=== PATIENT | male | born 1975 | race African-American/Black ===

== ENCOUNTER 2017-01-19 16:27 | Inpatient (IN) | payer MEDICAID ==
[~2017-01-19] VITALS: Ht 165.1 cm; Wt 106.1 kg
[2017-01-19 19:22] LABS: Calcium 8.3 mg/dL (8.5-10.1); Potassium 3.4 mmol/L (3.5-5.1)
[2017-01-19 19:24] LABS: Basophils # (auto) 0 uL; Basophils % (auto) 0.2 % (0.0-2.0); Eosinophils # (auto) 0.2 uL; Eosinophils % (auto) 1.9 % (0.0-7.0); Hematocrit 38.9 % (41.0-53.0); Hemoglobin 13.4 g/dL (13.5-17.5); Lymphocytes % (auto) 12.1 % (10.0-50.0); Mean Corpuscular Hemoglobin 28.8 pg (28.0-32.0); Mean Corpuscular Hgb Conc. 34.5 g/dL (32.0-36.0); Mean Corpuscular Volume 83.4 fL (80.0-100.0); Mean Platelet Volume 8.7 fL (7.4-10.4); Monocytes # (auto) 0.7 uL; Monocytes % (auto) 8.1 % (0.0-12.0); Neutrophils # (auto) 6.5 uL; Neutrophils % (auto) 77.7 % (37.0-80.0); Platelet Count (auto) 313 10^3/uL (140-450); Red Cell Distribution Width 13.6 % (11.6-16.0); White Blood Cell 8.4 10^3/uL (4.4-10.8)
[2017-01-19 19:25] LABS: BUN/Creatinine Ratio 6.9
[2017-01-19 19:28] LABS: Bilirubin, Total 0.2 mg/dL (0.2-1.0); Total Protein 7.6 g/dL (6.4-8.2)
[2017-01-19] MEDS ORDERED: LEVOFLOXACIN 750MG 150 ML IV ONE (20:15)
[2017-01-19] MEDS ORDERED: PROMETHAZINE W/CODEINE 5 ML ORAL SYRUP PO ONE (20:15)
[2017-01-19] MEDS ORDERED: cefTRIAXone 1GM/50ML D5W 50 ML IV ONE (20:15)
[2017-01-19] MEDS ORDERED: ALBUTEROL SULF 2.5 MG/0.5ML(0.5%) NEB SOLN NEB ONE (21:15)
[2017-01-19] MEDS ORDERED: IPRATROPIUM BROM 0.5 MG/2.5ML INH SOL NEB ONE (21:15)
[2017-01-19] MEDS ORDERED: IOHEXOL 350 MG/ML 100ML IJ ONE (21:58)
[2017-01-19 23:10] LABS: Urine Bilirubin Negative (Negative); Urine Blood Negative /uL (Negative); Urine Color Yellow (Yellow); Urine Glucose Normal (Normal); Urine Ketone Negative (Negative); Urine Mucus FEW (None Seen); Urine Nitrite Negative (Negative); Urine RBC <1 /hpf (0 - 3); Urine Squamous Epithelial Cell FEW /hpf (<5); Urine Urobilinogen Normal (Negative)
[2017-01-19] MEDS ORDERED: SODIUM CHLORIDE 0.9% 1,000 ML IV SCH (23:44)
[2017-01-19] MEDS ORDERED: DEXTROSE (50%) 50ML SYRG IV PRN (23:45)
[2017-01-19] MEDS ORDERED: MORPHINE SULF INJ 2 MG/ML SYRINGE 1ML IV PRN (23:45)
[2017-01-19] MEDS ORDERED: ONDANSETRON HCL 4 MG/2 ML VIAL IV PRN (23:45)
[2017-01-19] MEDS ORDERED: TEMAZEPAM 15 MG CAP PO PRN (23:45)
[2017-01-20] VITALS (7 sets, daily range): BP systolic 109–132; BP diastolic 60–72
[2017-01-20] MEDS: ACCU-CHEK COMFORT CURVE STRIP VI SCH ×4 (00:06→18:00)
[2017-01-20] MEDS: ACETAMINOPHEN 325 MG TAB PO PRN ×2 (00:11→09:49)
[2017-01-20] MEDS ORDERED: NORPTMEDS CO (04:12)
[2017-01-20] MEDS: InsuLIN REG 1unit/0.01ml Soln (100units/ml) SC SCH ×5 (05:42→18:00)
[2017-01-20 06:09] LABS: Basophils # (auto) 0 uL; Basophils % (auto) 0.4 % (0.0-2.0); Eosinophils # (auto) 0.2 uL; Hematocrit 37.1 % (41.0-53.0); Lymphocytes # (auto) 0.9 uL; Lymphocytes % (auto) 11.5 % (10.0-50.0); Mean Corpuscular Volume 83.1 fL (80.0-100.0); Mean Platelet Volume 8.7 fL (7.4-10.4); Monocytes # (auto) 0.6 uL; Monocytes % (auto) 7.8 % (0.0-12.0); Neutrophils # (auto) 6.3 uL; Neutrophils % (auto) 77.3 % (37.0-80.0); Platelet Count (auto) 302 10^3/uL (140-450); Red Cell Distribution Width 13.2 % (11.6-16.0); White Blood Cell 8.2 10^3/uL (4.4-10.8)
[2017-01-20 06:33] LABS: Albumin 2.7 g/dL (3.4-5.0); BUN/Creatinine Ratio 6.8; Bilirubin, Total 0.4 mg/dL (0.2-1.0); Calcium 8.2 mg/dL (8.5-10.1); Potassium 3.8 mmol/L (3.5-5.1); Total Protein 7.2 g/dL (6.4-8.2)
[2017-01-20] MEDS: ENOXAPARIN SOD 40 MG/0.4 ML SYRINGE SC SCH (10:00)
[2017-01-20] MEDS: FAMOTIDINE 20 MG TAB PO SCH ×2 (10:04→21:50)
[2017-01-20] MEDS ORDERED: guaiFENesin-DEXTROMETHORPHAN 5ML SYR PO PRN (15:30)
[2017-01-20 16:51] LABS: INR 0.95 (0.9-1.15); Partial Thromboplastin Time 34.3 sec (22.64-33.71); Prothrombin Time 10.3 sec (9.37-12.3)
[2017-01-20] MEDS: IPRATROPIUM BROM 0.5 MG/2.5ML INH SOL NEB PRN (20:54)
[2017-01-20] MEDS: ALBUTEROL SULF 2.5 MG/0.5ML(0.5%) NEB SOLN NEB PRN (20:54)
[2017-01-20] MEDS ORDERED: LEVOFLOXACIN 750MG 150 ML IV SCH (21:00)
[2017-01-20] MEDS: HYDROcodone-ACET 5/325MG TAB PO PRN (21:51)
[2017-01-20] MEDS: LEVOFLOXACIN 750MG 150 ML IV SCH (21:56)
[2017-01-21 05:39] VITALS: BP 124/71
[2017-01-21] MEDS: InsuLIN REG 1unit/0.01ml Soln (100units/ml) SC SCH ×4 (06:00→18:00)
[2017-01-21] MEDS: ACCU-CHEK COMFORT CURVE STRIP VI SCH ×4 (06:00→18:00)
[2017-01-21] MEDS: IPRATROPIUM BROM 0.5 MG/2.5ML INH SOL NEB PRN ×2 (06:39→17:51)
[2017-01-21] MEDS: ALBUTEROL SULF 2.5 MG/0.5ML(0.5%) NEB SOLN NEB PRN (06:39)
[2017-01-21 06:49] LABS: Basophils # (auto) 0 uL; Basophils % (auto) 0.4 % (0.0-2.0); Eosinophils # (auto) 0.2 uL; Eosinophils % (auto) 2.3 % (0.0-7.0); Hematocrit 36.2 % (41.0-53.0); Hemoglobin 12.6 g/dL (13.5-17.5); Lymphocytes % (auto) 11.6 % (10.0-50.0); Mean Corpuscular Hemoglobin 29.3 pg (28.0-32.0); Mean Corpuscular Hgb Conc. 34.8 g/dL (32.0-36.0); Mean Corpuscular Volume 84.1 fL (80.0-100.0); Mean Platelet Volume 8.5 fL (7.4-10.4); Monocytes # (auto) 0.7 uL; Monocytes % (auto) 8.6 % (0.0-12.0); Neutrophils # (auto) 6.4 uL; Neutrophils % (auto) 77.1 % (37.0-80.0); Platelet Count (auto) 321 10^3/uL (140-450); Red Cell Distribution Width 13.6 % (11.6-16.0); White Blood Cell 8.3 10^3/uL (4.4-10.8)
[2017-01-21 07:18] LABS: Calcium 8.1 mg/dL (8.5-10.1); Magnesium 2.4 mg/dL (1.6-2.6); Potassium 3.8 mmol/L (3.5-5.1)
[2017-01-21 07:20] LABS: BUN/Creatinine Ratio 9.2
[2017-01-21 08:36] VITALS: BP 124/70
[2017-01-21] MEDS ORDERED: ACETYLCYSTEINE 10 %(100MG/ML) SOL 4ML NEB SCH (10:00)
[2017-01-21] MEDS: ENOXAPARIN SOD 40 MG/0.4 ML SYRINGE SC SCH (10:13)
[2017-01-21] MEDS: FAMOTIDINE 20 MG TAB PO SCH ×2 (10:13→20:35)
[2017-01-21] MEDS ORDERED: ALBUTEROL SULF 2.5 MG/0.5ML(0.5%) NEB SOLN NEB PRN (11:00)
[2017-01-21] MEDS: ACETYLCYSTEINE 10 %(100MG/ML) SOL 4ML NEB SCH ×2 (12:33→17:51)
[2017-01-21] MEDS: ALBUTEROL SULF 2.5 MG/0.5ML(0.5%) NEB SOLN NEB SCH ×2 (12:33→17:51)
[2017-01-21 13:27] VITALS: BP 126/73
[2017-01-21 17:24] VITALS: BP 129/72
[2017-01-21] MEDS: LEVOFLOXACIN 750MG 150 ML IV SCH (20:35)
[2017-01-21] MEDS: HYDROcodone-ACET 5/325MG TAB PO PRN (20:35)
[2017-01-21 22:00] VITALS: BP 102/53
[2017-01-22] MEDS: ACETYLCYSTEINE 10 %(100MG/ML) SOL 4ML NEB SCH ×4 (00:17→20:31)
[2017-01-22] MEDS: IPRATROPIUM BROM 0.5 MG/2.5ML INH SOL NEB PRN (00:18)
[2017-01-22] MEDS: ALBUTEROL SULF 2.5 MG/0.5ML(0.5%) NEB SOLN NEB SCH ×4 (00:18→20:31)
[2017-01-22 05:00] VITALS: BP 123/69
[2017-01-22] MEDS: ACCU-CHEK COMFORT CURVE STRIP VI SCH ×5 (05:42→23:43)
[2017-01-22] MEDS: InsuLIN REG 1unit/0.01ml Soln (100units/ml) SC SCH ×6 (05:43→23:43)
[2017-01-22 06:34] LABS: Basophils # (auto) 0 uL; Basophils % (auto) 0.3 % (0.0-2.0); Eosinophils # (auto) 0.2 uL; Hematocrit 36.9 % (41.0-53.0); Hemoglobin 12.8 g/dL (13.5-17.5); Mean Corpuscular Hemoglobin 28.7 pg (28.0-32.0); Mean Corpuscular Hgb Conc. 34.5 g/dL (32.0-36.0); Mean Corpuscular Volume 83.2 fL (80.0-100.0); Mean Platelet Volume 8.1 fL (7.4-10.4); Monocytes # (auto) 0.9 uL; Monocytes % (auto) 9.7 % (0.0-12.0); Platelet Count (auto) 366 10^3/uL (140-450); Red Cell Distribution Width 13.2 % (11.6-16.0); White Blood Cell 9.1 10^3/uL (4.4-10.8)
[2017-01-22 07:04] LABS: BUN/Creatinine Ratio 9.9; Calcium 8.1 mg/dL (8.5-10.1); Magnesium 2.5 mg/dL (1.6-2.6); Potassium 3.9 mmol/L (3.5-5.1)
[2017-01-22 09:00] VITALS: BP 124/67
[2017-01-22] MEDS: ENOXAPARIN SOD 40 MG/0.4 ML SYRINGE SC SCH (10:14)
[2017-01-22] MEDS: FAMOTIDINE 20 MG TAB PO SCH ×2 (10:15→22:14)
[2017-01-22 13:00] VITALS: BP 127/60
[2017-01-22] MEDS: ACETAMINOPHEN 325 MG TAB PO PRN ×2 (15:50→22:31)
[2017-01-22 16:32] VITALS: BP 130/73
[2017-01-22 22:00] VITALS: BP 109/56
[2017-01-22] MEDS: LEVOFLOXACIN 750MG 150 ML IV SCH (22:14)
[2017-01-23] MEDS: ALBUTEROL SULF 2.5 MG/0.5ML(0.5%) NEB SOLN NEB SCH ×4 (00:44→19:19)
[2017-01-23] MEDS: IPRATROPIUM BROM 0.5 MG/2.5ML INH SOL NEB PRN (00:44)
[2017-01-23 05:34] LABS: Basophils # (auto) 0.1 uL; Basophils % (auto) 0.6 % (0.0-2.0); Eosinophils # (auto) 0.2 uL; Eosinophils % (auto) 2.6 % (0.0-7.0); Hematocrit 35.3 % (41.0-53.0); Hemoglobin 12.5 g/dL (13.5-17.5); Lymphocytes % (auto) 10.7 % (10.0-50.0); Mean Corpuscular Hemoglobin 29.9 pg (28.0-32.0); Mean Corpuscular Hgb Conc. 35.4 g/dL (32.0-36.0); Mean Corpuscular Volume 84.4 fL (80.0-100.0); Mean Platelet Volume 8.2 fL (7.4-10.4); Monocytes # (auto) 0.9 uL; Neutrophils # (auto) 7.1 uL; Neutrophils % (auto) 76.1 % (37.0-80.0); Platelet Count (auto) 409 10^3/uL (140-450); Red Cell Distribution Width 13.2 % (11.6-16.0); White Blood Cell 9.4 10^3/uL (4.4-10.8)
[2017-01-23] MEDS: InsuLIN REG 1unit/0.01ml Soln (100units/ml) SC SCH ×3 (05:39→18:00)
[2017-01-23] MEDS: ACCU-CHEK COMFORT CURVE STRIP VI SCH ×3 (05:43→18:25)
[2017-01-23 05:44] LABS: INR 1.01 (0.9-1.15); Partial Thromboplastin Time 33.8 sec (22.64-33.71)
[2017-01-23 06:00] VITALS: BP 116/68
[2017-01-23 06:01] LABS: BUN/Creatinine Ratio 8.6; Calcium 8.4 mg/dL (8.5-10.1); Magnesium 2.7 mg/dL (1.6-2.6)
[2017-01-23 09:00] VITALS: BP 130/64
[2017-01-23] MEDS: FAMOTIDINE 20 MG TAB PO SCH ×2 (10:00→21:38)
[2017-01-23 13:00] VITALS: BP_SYST 113; BP_SYST 123; BP_DIAS 52; BP_DIAS 66
[2017-01-23 16:32] VITALS: BP 113/52
[2017-01-23] MEDS: LEVOFLOXACIN 750MG 150 ML IV SCH (21:38)
[2017-01-23 22:00] VITALS: BP_SYST 126; BP_SYST 147; BP_DIAS 72; BP_DIAS 85
[2017-01-24] MEDS: ACCU-CHEK COMFORT CURVE STRIP VI SCH ×5 (00:03→23:51)
[2017-01-24 01:12] VITALS: BP 113/52
[2017-01-24 06:00] VITALS: BP 126/72
[2017-01-24] MEDS: ALBUTEROL SULF 2.5 MG/0.5ML(0.5%) NEB SOLN NEB SCH ×4 (06:00→19:22)
[2017-01-24] MEDS: InsuLIN REG 1unit/0.01ml Soln (100units/ml) SC SCH ×5 (06:00→23:54)
[2017-01-24 06:39] LABS: BUN/Creatinine Ratio 9.4; Calcium 8.3 mg/dL (8.5-10.1); Magnesium 2.6 mg/dL (1.6-2.6); Potassium 3.8 mmol/L (3.5-5.1)
[2017-01-24 07:05] LABS: Basophils # (auto) 0 uL; Basophils % (auto) 0.3 % (0.0-2.0); Eosinophils # (auto) 0.3 uL; Eosinophils % (auto) 2.7 % (0.0-7.0); Hematocrit 36.6 % (41.0-53.0); Hemoglobin 12.7 g/dL (13.5-17.5); Lymphocytes # (auto) 1.1 uL; Lymphocytes % (auto) 10.8 % (10.0-50.0); Mean Corpuscular Hemoglobin 28.7 pg (28.0-32.0); Mean Corpuscular Hgb Conc. 34.7 g/dL (32.0-36.0); Mean Corpuscular Volume 82.6 fL (80.0-100.0); Mean Platelet Volume 8.6 fL (7.4-10.4); Monocytes # (auto) 1.1 uL; Monocytes % (auto) 10.7 % (0.0-12.0); Neutrophils # (auto) 7.6 uL; Neutrophils % (auto) 75.5 % (37.0-80.0); Platelet Count (auto) 433 10^3/uL (140-450); Red Cell Distribution Width 13.7 % (11.6-16.0)
[2017-01-24] MEDS ORDERED: LIDOCAINE 2%HCL (LOCAL ANESTH.) INJ 20ML MDV ONE ×2 (08:03→14:30)
[2017-01-24] MEDS ORDERED: EPINEPHrine HCL 1 MG/1 ML AMP ONE (08:04)
[2017-01-24] MEDS ORDERED: LIDOCAINE HCL 2% TOP JELLY 5ML TOP ONE (08:04)
[2017-01-24] MEDS ORDERED: SODIUM CHLORIDE LOCK 10 ML ONE (08:04)
[2017-01-24] MEDS ORDERED: MIDAZOLAM HCL 5 MG/ML-1ML VIAL ONE (08:04)
[2017-01-24 09:00] VITALS: BP 122/73
[2017-01-24] MEDS: FAMOTIDINE 20 MG TAB PO SCH ×2 (10:00→22:01)
[2017-01-24 13:20] VITALS: BP 105/52
[2017-01-24] MEDS ORDERED: KETAMINE HCL 1 ML ONE (13:49)
[2017-01-24] MEDS ORDERED: GLYCOPYRROLATE 0.2 MG/ML 1ML VIAL ONE (13:54)
[2017-01-24] MEDS ORDERED: ONDANSETRON HCL 4 MG/2 ML VIAL ONE (13:54)
[2017-01-24] MEDS ORDERED: DEXAMETHASONE SOD PHOS 10MG/1ML VIAL INJ ONE (13:54)
[2017-01-24] MEDS ORDERED: PROPOFOL 10 MG/ML 20 ML IV ONE (13:55)
[2017-01-24] MEDS: IPRATROPIUM BROM 0.5 MG/2.5ML INH SOL NEB PRN ×2 (14:15→19:22)
[2017-01-24] MEDS: PIPERACILLIN-TAZOB 3.375GM 100 ML IV SCH ×2 (16:21→23:15)
[2017-01-24] MEDS: LEVOFLOXACIN 750MG 150 ML IV SCH (21:05)
[2017-01-24] MEDS ORDERED: PIPERACILLIN-TAZOB 3.375GM 100 ML IV SCH (22:00)
[2017-01-24 22:07] VITALS: BP 118/63
[2017-01-25] VITALS (7 sets, daily range): BP systolic 100–116; BP diastolic 55–67
[2017-01-25] MEDS: IPRATROPIUM BROM 0.5 MG/2.5ML INH SOL NEB PRN (00:27)
[2017-01-25] MEDS: ALBUTEROL SULF 2.5 MG/0.5ML(0.5%) NEB SOLN NEB SCH ×4 (00:28→19:21)
[2017-01-25] MEDS: PIPERACILLIN-TAZOB 3.375GM 100 ML IV SCH ×4 (03:39→21:42)
[2017-01-25] MEDS: InsuLIN REG 1unit/0.01ml Soln (100units/ml) SC SCH ×3 (06:00→18:00)
[2017-01-25] MEDS: ACCU-CHEK COMFORT CURVE STRIP VI SCH ×3 (06:00→18:00)
[2017-01-25] MEDS: FAMOTIDINE 20 MG TAB PO SCH ×2 (10:15→21:37)
[2017-01-25] MEDS: LEVOFLOXACIN 750MG 150 ML IV SCH (20:12)
[2017-01-26] MEDS: ALBUTEROL SULF 2.5 MG/0.5ML(0.5%) NEB SOLN NEB SCH ×3 (00:55→12:47)
[2017-01-26] MEDS: PIPERACILLIN-TAZOB 3.375GM 100 ML IV SCH ×3 (03:52→16:00)
[2017-01-26 04:50] VITALS: BP 112/63
[2017-01-26] MEDS: InsuLIN REG 1unit/0.01ml Soln (100units/ml) SC SCH ×3 (06:00→12:00)
[2017-01-26] MEDS: ACCU-CHEK COMFORT CURVE STRIP VI SCH ×3 (06:18→14:43)
[2017-01-26 08:12] VITALS: BP 117/65
[2017-01-26] MEDS: FAMOTIDINE 20 MG TAB PO SCH (09:59)
[2017-01-26 11:22] VITALS: BP 129/59
[2017-01-26 15:48] VITALS: BP 129/59
[2017-01-26 16:12] VITALS: BP 123/59
== END 2017-01-26 18:52 | disposition home or self-care (01) | DRG 133 ==
LOC: EDBD 16:27 → ER 16:34 → WEST WING 16:35
PROVIDERS: ADMIT Internal Medicine; ATTEND Internal Medicine
PROC: 0B948ZX Drainage of Right Upper Lobe Bronchus, Via Natural or Artificial Opening Endoscopic, Diagnostic (ICD-10-PCS; 2017-01-24)
PROC: 0BBF8ZX Excision of Right Lower Lung Lobe, Via Natural or Artificial Opening Endoscopic, Diagnostic (ICD-10-PCS; 2017-01-24)
PROC: 0B9F8ZX Drainage of Right Lower Lung Lobe, Via Natural or Artificial Opening Endoscopic, Diagnostic (ICD-10-PCS; principal; 2017-01-24 14:22)
DX: J96.01 Acute respiratory failure with hypoxia (principal); J18.9 Pneumonia, unspecified organism; Z99.81 Dependence on supplemental oxygen; E66.2 Morbid (severe) obesity with alveolar hypoventilation; E11.9 Type 2 diabetes mellitus without complications; Z68.38 Body mass index [BMI] 38.0-38.9, adult; I51.7 Cardiomegaly; Z71.89 Other specified counseling
CPT/HCPCS: 36415; 71010; 71260; 80048; 80053; 81001; 82962; 83735; 85025; 85379; 85610; 85730; 86738; 87040; 87070; 87075; 87205; 87278; 93005; 94640; 94761; 96365; 96375; J0171; J0696; J1100; J1815; J1956; J2250; J2405; J2543; J2704